=== PATIENT | female | born 1990 | race Caucasian/White ===

== ENCOUNTER 2021-06-27 09:40 | Emergency (ER) | payer BC, OTHER ==
[2021-06-27 09:52] VITALS: TEMP 98.9; BMI 29.0
[2021-06-27] MEDS ORDERED: SODIUM CHLORIDE 1,000 ML IV STA (10:02)
[2021-06-27 10:39] LABS: BASO % 2.3 % (0-2.0); HEMATOCRIT 45.2 % (32.4-45.2); HEMOGLOBIN 15.7 GM/dl (10.7-15.3); LYMPH % 20.5 % (8-40); MCH 28.7 pg (25.7-33.7); MCHC 34.7 g/dl (32.0-36.0); MEAN CELL VOLUME 82.8 fl (80-96); MEAN PLT VOLUME 8.8 fl (7.5-11.1); MONO % 8.5 % (3.8-10.2); NEUT % 66.7 % (42.8-82.8); PLATELET COUNT 345 10^3/uL (134-434); RBC 5.45 M/mm3 (3.60-5.2); RDW 13.1 % (11.6-15.6); WHITE BLOOD COUNT 12.7 K/mm3 (4.0-10.8)
[2021-06-27 11:05] LABS: ALBUMIN 4.4 g/dl (3.4-5.0); ALK PHOS 75 U/L (45-117); ANION GAP 14 MMOL/L (8-16); BILIRUBIN,TOTAL 0.6 mg/dl (0.2-1); CALCIUM 9.6 mg/dl (8.5-10); CHLORIDE 102 mmol/L (98-107); CO2 21 mmol/L (21-32); GLUCOSE,RANDOM 96 mg/dl (74-106); SGOT/AST 17 U/L (15-37); SGPT/ALT 15 U/L (13-61); SODIUM 137 mmol/L (136-145)
[2021-06-27] MEDS ORDERED: POTASSIUM CHLORIDE ORAL LIQUID 20 MEQ/15 ML PO ONE (11:36)
[2021-06-27] MEDS ORDERED: POTASSIUM CHLORIDE ORAL LIQUID 20 MEQ/15 ML ONE (11:38)
[2021-06-27 12:28] VITALS: BP 117/78; PULSE 90
== END 2021-06-27 12:30 | disposition home or self-care (01) ==
LOC: FER 09:40
DX: R06.02 Shortness of breath (principal); R00.2 Palpitations; R07.9 Chest pain, unspecified
CPT/HCPCS: 36415; 71046-TC-FY; 80053; 82550; 84439; 84443; 84481; 84484; 85025; 85379; 93005; 93970-TC; 99285-25; C9803; U0003; U0005

== ENCOUNTER 2021-06-29 00:45 | Emergency (ER) | payer OTHER ==
[2021-06-29 00:53] VITALS: BP 121/81; TEMP 99.3; BMI 29.0
[2021-06-29] MEDS ORDERED: diazePAM 5 MG TABLET PO ONE (01:08)
[2021-06-29] MEDS ORDERED: diazePAM 5 MG TABLET ONE (01:28)
[2021-06-29 01:30] VITALS: PULSE 101
== END 2021-06-29 02:36 | disposition home or self-care (01) ==
LOC: FER 00:45
DX: R06.02 Shortness of breath (principal); T45.0X1A Poisoning by antiallergic and antiemetic drugs, accidental (unintentional), initial encounter; R00.0 Tachycardia, unspecified
CPT/HCPCS: 81025; 93005; 99284-25

== ENCOUNTER 2021-08-16 19:50 | Emergency (ER) | payer OTHER ==
[2021-08-16 20:09] VITALS: BP 113/84; PULSE 125; TEMP 98.3; BMI 29.0
== END 2021-08-16 20:35 | disposition home or self-care (01) ==
LOC: FER 19:50
DX: S60.222A Contusion of left hand, initial encounter (principal); Y99.9 Unspecified external cause status
CPT/HCPCS: 73130-TC-LT-FY; 93005; 93010; 99284-25

== ENCOUNTER 2021-10-28 14:05 | Emergency (ER) | payer OTHER ==
[2021-10-28 14:24] VITALS: BP 115/67; PULSE 97; TEMP 99; BMI 29.0
== END 2021-10-28 16:35 | disposition home or self-care (01) ==
LOC: FER 14:05
DX: M25.531 Pain in right wrist (principal)
CPT/HCPCS: 36415; 73110-TC-LT-FY; 73130-TC-LT-FY; 82550; 84484; 93005; 93971; 99285-25

== ENCOUNTER 2022-01-25 15:58 | Emergency (ER) | payer OTHER ==
[2022-01-25 16:15] VITALS: TEMP 97.8; BMI 28.2
[2022-01-25] MEDS ORDERED: ACETAMINOPHEN 325 MG TABLET (FP) PO ONE (16:23)
[2022-01-25] MEDS ORDERED: SODIUM CHLORIDE 0.9% 1000 ML INFUS.BAG IV ONE (16:41)
[2022-01-25] MEDS ORDERED: ACETAMINOPHEN 325 MG TABLET (FP) ONE (16:48)
[2022-01-25 17:14] LABS: INR 1.16 (0.83-1.09); PROTHROMBIN TIME (PATIENT) 13.4 SEC (9.7-13.0)
[2022-01-25 17:17] LABS: ACTIVATED PTT 37.8 SECONDS (25.2-36.5)
[2022-01-25 17:21] LABS: ALBUMIN 4.2 g/dl (3.4-5.0); ALK PHOS 63 U/L (45-117); ANION GAP 9 MMOL/L (8-16); BILIRUBIN,TOTAL 0.7 mg/dl (0.2-1); CALCIUM 9.3 mg/dl (8.5-10); CHLORIDE 98 mmol/L (98-107); CO2 21 mmol/L (21-32); CREATININE 0.8 mg/dl (0.55-1.3); GLUCOSE,RANDOM 87 mg/dl (74-106); SGOT/AST 17 U/L (15-37); SGPT/ALT 14 U/L (13-61); SODIUM 128 mmol/L (136-145); TOT PROT 7.7 g/dl (6.4-8.2)
[2022-01-25 18:03] LABS: HEMATOCRIT 40.7 % (32.4-45.2); MCHC 35.7 g/dl (32.0-36.0); MEAN CELL VOLUME 84.1 fl (80-96); MEAN PLT VOLUME 7.9 fl (7.5-11.1); PLATELET COUNT 340.6 10^3/uL (134-434); RBC 4.84 10^6/uL (3.60-5.2); WHITE BLOOD COUNT 11.7 10^3/uL (4.0-10.8)
[2022-01-25 18:16] LABS: HEMOGLOBIN 14.5 G/dL (10.7-15.3)
[2022-01-25 18:40] LABS: PLATELET ESTIMATE ADEQUATE
[2022-01-25 20:55] VITALS: BP 115/68; PULSE 89
== END 2022-01-25 21:16 | disposition home or self-care (01) ==
LOC: FER 15:58
DX: R06.02 Shortness of breath (principal); R07.9 Chest pain, unspecified; M79.604 Pain in right leg
CPT/HCPCS: 36415; 71045-TC-FY; 71275-TC; 80053; 84484; 84703; 85025; 85379; 85610; 85730; 93005; 93971-TC; 99285-25; Q9967

== ENCOUNTER 2022-05-18 08:16 | Emergency (ER) | payer OTHER ==
[2022-05-18 08:30] VITALS: RESP 20; TEMP 98.2; BMI 27.4
[2022-05-18] MEDS ORDERED: ACETAMINOPHEN 325 MG TABLET (FP) PO ONE (09:10)
[2022-05-18] MEDS ORDERED: ACETAMINOPHEN 325 MG TABLET (FP) ONE (09:19)
[2022-05-18 10:12] LABS: HEMATOCRIT 43.7 % (32.4-45.2); HEMOGLOBIN 15.2 G/dL (10.7-15.3); MCH 29.6 pg (25.7-33.7); MCHC 34.7 g/dl (32.0-36.0); MEAN CELL VOLUME 85.2 fl (80-96); MEAN PLT VOLUME 7.5 fl (7.5-11.1); RBC 5.13 10^6/uL (3.60-5.2); RDW 14.3 % (11.6-15.6); WHITE BLOOD COUNT 10.6 10^3/uL (4.0-10.8)
[2022-05-18 10:34] LABS: ALBUMIN 4.1 g/dl (3.4-5.0); BILIRUBIN,TOTAL 0.6 mg/dl (0.2-1); CALCIUM 9.2 mg/dl (8.5-10); CREATININE 0.8 mg/dl (0.55-1.3); TOT PROT 7.3 g/dl (6.4-8.2)
[2022-05-18 11:51] VITALS: BP 101/62; PULSE 88
== END 2022-05-18 11:54 | disposition home or self-care (01) ==
LOC: FER 08:16
DX: B34.9 Viral infection, unspecified (principal)
CPT/HCPCS: 36415; 71045-TC-FY; 80053; 85027; 85379; 93005; 93971-TC; 99284-25